=== PATIENT | male | born 1980 | race American Indian/Alaskan Native ===

== ENCOUNTER 2022-12-27 21:31 | Emergency (ER) | payer MEDICAID ==
[~2022-12-27] VITALS: Ht 175.3 cm; Wt 78.0 kg
[2022-12-27 21:53] VITALS: BP 152/99
[2022-12-27] MEDS ORDERED: CEFTRIAXONE SODIUM 500 MG/VIAL IM ONE (23:45)
[2022-12-27] MEDS ORDERED: ACETAMINOPHEN 325MG TABLET PO ONE (23:45)
[2022-12-28] MEDS ORDERED: CEPH500C2 MT (00:12)
[2022-12-28] MEDS ORDERED: IBUP-2028 MT (00:12)
[2022-12-28] MEDS ORDERED: DOXY100C5 MT (00:12)
== END 2022-12-28 01:44 | disposition home or self-care (01) ==
LOC: ER 21:31
DX: S30.812A Abrasion of penis, initial encounter (principal); W26.8XXA Contact with other sharp object(s), not elsewhere classified, initial encounter; Y93.89 Activity, other specified; Y92.89 Other specified places as the place of occurrence of the external cause; Y99.8 Other external cause status
CPT/HCPCS: 86592; 87491; 87591; 96372; 99283; J0696